=== PATIENT | male | born 1980 | race Caucasian/White ===

== ENCOUNTER 2020-10-04 08:57 | Emergency (ER) | payer MEDICAID, OTHER ==
[~2020-10-04] VITALS: Ht 182.9 cm; Wt 114.5 kg
[2020-10-04] MEDS ORDERED: ALBUTEROL/IPRATROPIUM 2.5MG/0.5MG, 3 ML ONE (09:27)
[2020-10-04] MEDS ORDERED: ALBUTEROL/IPRATROPIUM 2.5MG/0.5MG, 3 ML NPPB ONE (09:30)
--- NOTE | 2020-10-04 09:33 | NUR ---
RAD UNABLE TO PERFORM CXR AT THIS TIME DUE TO NEB TX IN PROCESS.
--- NOTE | 2020-10-04 10:00 | NUR ---
XRAY AT BEDSIDE. PT STATES "THE BREATHING TX HELPED ME A LITTLE, THEY ALWAYS LOLA HELP CALM ME DOWN". PT SITTING UPRIGHT ON GURNEY, NAD, VSS, PT DENIES ANY NEEDS AT THIS TIME. CALL LIGHT AND PERSONAL BELONGINGS WITHIN REACH.
[2020-10-04 10:34] LABS: BASOPHILS % (AUTO) 2 % (0-1); EOSINOPHILS % (AUTO) 6 % (1-7); LYMPHOCYTES % (AUTO) 33 % (22-44); MEAN CORPUSCULAR HEMOGLOBIN 30.7 pg (27.5-34.5); MEAN PLATELET VOLUME 10.7 fL (7.4-10.4); MONOCYTES % (AUTO) 6 % (2-9); NEUTROPHILS % (AUTO) 54 % (42-75); PLATELET COUNT 165 x10^3/uL (130-400); RED BLOOD COUNT 5.32 x10^6/uL (4.38-5.82); RED CELL DISTRIBUTION WIDTH 12.7 % (9.4-14.8)
[2020-10-04 10:36] LABS: MD NO
[2020-10-04 10:40] LABS: CALCIUM 8.9 mg/dL (8.5-10.1)
[2020-10-04 10:46] LABS: ALANINE AMINOTRANSFERASE 48 U/L (12-78); ALKALINE PHOSPHATASE 71 U/L (45-117); BILIRUBIN,TOTAL 1.8 mg/dL (0.2-1.0); CREATININE 1.15 mg/dL (0.7-1.3); TOTAL PROTEIN 7.1 g/dL (6.4-8.2); TROPONIN I < 0.015 ng/mL (0.000-0.045)
[2020-10-04 10:49] LABS: ANION GAP 6 mmol/L (5-15); CHLORIDE 110 mmol/L (98-107)
--- NOTE | 2020-10-04 11:03 | NUR ---
PT SITTING UPRIGHT ON GURNEY, NAD, VSS, PT DENIES ANY NEEDS AT THIS TIME. REPORTS NO CHEST PAIN BUT "I HAVEN'T MOVED OR GOTTEN UP, SO IM NOT SURE IT COULD HAPPEN AGAIN". CALL LIGHT AND PERSONAL BELONGINGS WITHIN REACH.
[2020-10-04 12:21] VITALS: BP 124/70
--- NOTE | 2020-10-04 12:21 | NUR ---
Patient given discharge instructions and they have confirmed that they understand the instructions. Patient ambulatory with steady gait.
== END 2020-10-04 12:27 | disposition home or self-care (01) ==
LOC: ED 09:52
DX: R07.89 Other chest pain (principal); J45.909 Unspecified asthma, uncomplicated
CPT/HCPCS: 36415; 71045; 80053; 84484; 85025; 93005; 94640; 99285